=== PATIENT | male | born 1955 | race Caucasian/White ===

== ENCOUNTER 2024-02-08 10:26 | Emergency (ER) | payer MEDICARE, MEDICAID, SELFPAY ==
[2024-02-08] VITALS (8 sets, daily range): BP systolic 110–146; BP diastolic 74–95; PULSE 80–83; RESP 18–25; TEMP 36.5; O2SAT 92–100; BMI 28.1
--- NOTE | 2024-02-08 10:53 | CT_ITS ---
WS: [id number] CT CERVICAL TRAUMA TECHNIQUE: Noncontrast CT of the cervical spine with coronal and sagittal reformatted images. CLINICAL INFORMATION: fall, neck pain COMPARISON: None. DLP: 1362.[address] scans at [facility] use at least one of these dose optimization techniques: automated e xposure control; mA and/or kV adjustment per patient size (includes targeted exams where dose is matc hed to clinical indication); or iterative reconstruction. FINDINGS: Straightening of the normal cervical lordosis. Moderate to advanced spondylitic changes. Disc space n arrowing throughout the cervical spine. Mild central canal stenosis C3-C6. Normal craniocervical junc tion. Normal C1-C2 articulation. Dens is normal in appearance. Normal occipital condyles. Normal C1 r ing. No evidence of acute fracture or dislocation. Normal prevertebral soft tissues. Mastoids air cells are well aerated. CT/CT cervical spin wo con* [id number] IMPRESSION: No evidence of acute fracture or dislocation. Moderate to advanced spondylitic changes.
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
--- NOTE | 2024-02-08 10:53 | CT_ITS ---
WS: [id number] CT LUMBAR SPINE TECHNIQUE: Noncontrast CT of the lumbar spine with coronal and sagittal reformatted images. CLINICAL INFORMATION: low back pain COMPARISON: None. DLP: 2111.[address] scans at [facility] use at least one of these dose optimization techniques: automated e xposure control; mA and/or kV adjustment per patient size (includes targeted exams where dose is matc hed to clinical indication); or iterative reconstruction. FINDINGS: Mild lumbar curve. Moderate spondylitic changes. Disc space narrowing throughout the lumbar spine. L3-L4: Disc osteophyte complex with endplate ridging. Mild RIGHT foraminal narrowing. Mild narrowing of the thecal sac with prominent epidural fat. Moderate facet arthropathy. L4-L5: Disc osteophyte complex with moderate narrowing of the thecal sac. Prominent epidural fat. Mil d RIGHT foraminal narrowing. Moderate facet arthropathy. L5-S1: Disc osteophyte complex with endplate ridging. Moderate to severe LEFT bony foraminal narrowin g. Mild central canal stenosis. Moderate facet arthropathy. Visualized pelvic bony structures: Normal. Paravertebral soft tissues: Normal. CT/CT lumbar spine wo con* [id number] IMPRESSION: Moderate spondylitic changes. No acute fractures
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
[2024-02-08 11:30] LABS: Basophils # 0.1 10^3/uL (0.0-0.1); Basophils % 0.8 %; Eosinophils # 0.1 10^3/uL (0.0-0.8); Eosinophils % 0.6 %; Hematocrit 49.3 % (37-53); Lymphocytes # 1.5 10^3/uL (0.8-4.8); Lymphocytes % 9.5 %; Mean Corpuscular HGB Conc 32.5 g/dL (30-55); Mean Corpuscular Hemoglobin 28.2 pg (27-33); Mean Corpuscular Volume 86.8 fl (82-101); Mean Platelet Volume 9.2 fL (7.4-10.4); Monocytes # 0.9 10^3/uL (0.2-0.9); Monocytes % 5.8 %; Neutrophils # 12.81 10^3/uL (1.8-7.7); Neutrophils % 82.9 %; Nucleated Red Blood Cells % 0 %; Platelet Count 248 10^3/cmm (157-399); Red Blood Count 5.68 10^6/uL (3.85-5.65); Red Cell Distribution Width 13.5 % (12.1-15.1); White Blood Count 15.44 10^3/uL (3.29-11.43)
[2024-02-08 11:48] LABS: Alanine Aminotransferase 34 U/L (0-41); Albumin Level 4.3 g/dL (3.5-5.2); Alkaline Phosphatase 150 U/L (40-130); Blood Urea Nitrogen 21 mg/dL (8-23); Calcium 9.9 mg/dL (8.5-10.5); Carbon Dioxide 15 mmol/L (22-29); Chloride 104 mmol/L (98-107); Globulin 4.2 g/dL (1.3-4.6); Glomerular Filtration Rate 50.5 mL/min (90-130); Glucose 100 mg/dL (65-115); Osmolality Calculated 289 mOsm/kg (285-295); Sodium 138 mmol/L (136-145); Total Bilirubin 1.2 mg/dL (0.15-1.2); Total Protein 8.5 g/dL (6.6-8.7)
[2024-02-08 11:50] LABS: Lactic Sepsis W/Reflex 2.5 mmol/L (0.5-2.2)
[2024-02-08 11:51] LABS: Creatinine Clr Calc Pharmacy 52.3737
[2024-02-08 11:52] LABS: Anion Gap 23.5 (5-19); Aspartate Amino Transferase 33 U/L (0-40); Potassium 4.5 mmol/L (3.5-5.1)
[2024-02-08] MEDS: morphine 4 mg/mL SDV 1 mL 2 MG IVP (12:08)
[2024-02-08] MEDS: ondansetron 2 mg/ML SDV 2 mL 4 MG IVP (12:08)
[2024-02-08] MEDS: LORazepam 2 mg/mL INJ 10 mL MDV 0.5 MG IV (12:10)
[2024-02-08] MEDS: sodium chloride 0.9% 1,000 ML 999 ML IV (12:11)
[2024-02-08 13:14] LABS: Reflex Lactate Order REFLEX LACTIC ORDERD
[2024-02-08] MEDS: iohexol 350 mg/mL 500 mL Btl (per mL) IV (13:34)
--- NOTE | 2024-02-08 14:24 | PC.NURSE ---
applied 2L NC d/t pt oxygen sat decreasing to 87%. pt resting with even and unlabored respirations, alert to voice.
[2024-02-08 14:41] LABS: Lactic Acid level (Lactate) 1.4 mmol/L (0.5-2.2)
== END 2024-02-08 15:24 | disposition home or self-care (01) ==
PROVIDERS: Emergency Provider Emergency Medicine
DX: S22.020A Wedge compression fracture of second thoracic vertebra, initial encounter for closed fracture (principal); F43.20 Adjustment disorder, unspecified; Z63.4 Disappearance and death of family member; V89.2XXA Person injured in unspecified motor-vehicle accident, traffic, initial encounter
CPT/HCPCS: 36415; 70450; 71260; 72125; 72128; 72131; 74177; 80053; 83605; 85025; 96374; 96375; 99285; J2060; J2270; J2405; J7030; Q9967